=== PATIENT | female | born 1995 | race Caucasian/White ===

== ENCOUNTER 2016-02-21 11:29 | Emergency (ER) | payer OTHER ==
[~2016-02-21] VITALS: Ht 172.7 cm; Wt 117.9 kg
[~2016-02-21 11:29] MED LIST: ATARAX25 MG PO; AVPAK AZITHROM250 M1 PO; BACTRIM DS 8001 TA1 PO; BIRTH CONTROL IMPLAN; BIRTH CONTROL1 EAC1 PO; CEFUROXIME AXE250 MG PO; CLARITIN-D 12 H1 TAB PO; CLARITIN10 MG PO; CLINDAMYCIN HC300 MG PO; DONNATAL1 TAB PO; Elocon 0.1% Cre15 GM T; FLONASE ALLERG9.9 ML NAS; HYDROCODONE BIT1 T11 PO; INDERAL LA60 MG PO; KEFLEX500 MG PO; LOPERAMIDE HCL2 MG PO; MEDROL DOSEPAK4 MG PO; MOTRIN600 MG PO; MOTRIN800 MG PO; NAPROSYN500 MG PO; NKHM; NORCO 325 MG-51 TAB PO; PREDNICOT20 MG PO; PREDNISONE10 MG PO; PREDNISONE20 M1 PO; PRILOSEC40 MG PO; PYRIDIUM200 M1 PO; PYRIDIUM200 MG PO; ROBITUSSIN DM 105 ML PO; VITAMIN D50000 I3 PO; ZITHROMAX Z PA250 MG PO; ZOFRAN ODT4 MG SL; ZOVIRAX400 MG PO; ZYRTEC10 MG PO
[2016-02-21] MEDS ORDERED: NEXPLANON68 M2 SQ (11:38)
[2016-02-21] MEDS ORDERED: OMNICEF300 MG PO (12:48)
[2016-02-23] MEDS ORDERED: CLINDAMYCIN150 MG PO (14:27)
[2016-02-23] MEDS ORDERED: PREDNISONE10 MG PO (14:29)
== END 2016-02-21 12:57 | disposition home or self-care (01) ==
LOC: ED 11:29
DX: J02.0 Streptococcal pharyngitis (principal); H92.01 Otalgia, right ear; Z88.0 Allergy status to penicillin; Z88.1 Allergy status to other antibiotic agents; Z88.2 Allergy status to sulfonamides; Z79.899 Other long term (current) drug therapy

== ENCOUNTER → 2016-05-21 | Day surgery (SDC) | payer OTHER ==
[2016-05-02 10:10] VITALS: BP 122/68
[~2016-05-21] MED LIST changes: +CLINDAMYCIN150 MG PO; +NEXPLANON68 M2 SQ; +OMNICEF300 MG PO
--- NOTE | ~2016-05-21 | O ---
[place], [place] OPERATIVE NOTE NAME: SUN PERKINS UNIT #: [id number] ROOM: DOCTOR: WILI MENDEZ MD BIRTHDATE: [birth year] DOS: 05/21/2016 PREOPERATIVE DIAGNOSIS: Retained Nexplanon unable to be removed in the office, left upper inner arm. POSTOPERATIVE DIAGNOSIS: Retained Nexplanon unable to be removed in the office, left upper inner arm. PROCEDURE: Removal of Nexplanon from left upper inner arm. SURGEON: Wili Mendez M.D. ANESTHESIA: MAC with 1% lidocaine local anesthetic 3 mL. ESTIMATED BLOOD LOSS: Minimal. COMPLICATIONS: None. STATUS: The patient status to recovery stable. OPERATIVE SUMMARY: The patient was taken to the operating room, left in supine position, administered MAC anesthesia, prepped and draped in routine manner. The IUD was identified, 1% local anesthetic, 3 mL were injected underneath the tip of the Nexplanon. A small stab incision was made and a Nexplanon was removed without complication. We then achieved hemostasis and then placed one interrupted 3-0 Monocryl suture subcuticularly and then placed dressing. The patient was cleaned off gently awakened and then transferred to recovery in satisfactory condition. WILI MENDEZ MD CM:OPRECORD:OPERATIVE NOTE [id number] WILI MENDEZ MD 05/21/161946 interface
--- NOTE | ~2016-05-21 | WRIGHTHP ---
[place], [place] PATIENT HISTORY AND PHYSICAL EXAM NAME: [facility]INS [id number] UNIT #: [id number] ROOM: DOCTOR: WILI DIMAS MD BIRTHDATE: [birth year] DOS: 05/07/2016 HISTORY OF PRESENT ILLNESS: A 20-year-old white female 0, whose last menstrual period is unknown as she is on Nexplanon and having amenorrhea who presented to the office on 04/24/2016 stating that the Nexplanon that she had placed by another provider on 02/17/2014 was now causing her arm to go numb and she was having significant pain at the insertion site. She also stated that she felt that the device had migrated somewhat upward. She is, as I said, having amenorrhea with this device, but did want this removed because of the symptoms and will initiate control pills thereafter. On the examination in the office, it was obvious that the patient was extremely anxious and strongly desired to be asleep for any type of surgical manipulation. We also were having trouble palpating the entire device and could in an actuality only palpate the superior aspect of the device itself; therefore, based on the patient's concerns, I reviewed with the patient and her mother the risks and benefits, indications, complications and alternatives of MAC anesthesia with local anesthetic in regard to removal of this device once she is stable and once she has her first post Nexplanon removal. We will then initiate oral contraceptives. The risks and benefits, indications, potential complications, and alternatives were thoroughly reviewed, understanding stated and consent signed. PAST MEDICAL HISTORY: Reveals the patient to be a nonsmoker and nondrinker. MEDICATIONS: She does take anti-inflammatories on a p.r.n. basis. ALLERGIES: She states allergy to PENICILLIN, which gives her a rash as well as allergy to BIAXIN, which gives her hives. We have no intention of using any antibiotics much less these 2 with the procedure. REVIEW OF SYSTEMS: Otherwise is stable in this patient. She states history of some allergies and asthma, but these are stable and she is taking no medications for these conditions at this time. FAMILY HISTORY: Reveals a history of hypertension, asthma, diabetes and even cancer of a questionable type throughout the family, but none of these issues at this time are pertinent to the procedure that is about to occur. PHYSICAL EXAMINATION: GENERAL: Reveals a pleasant white female. She is in no significant distress at this time other than what she complains about above. VITAL SIGNS: She is 5 feet, 8 inches, 262 pounds, BMI is essentially 40. Blood pressure 122/78. HEENT: Stable. NECK: Stable. LUNGS: Stable. Her lungs were clear in the office. CARDIAC: Stable. ABDOMEN: Normal. EXTREMITIES: Normal except for the discussion we have already had about the Nexplanon ivelisse in the left upper arm, and what was not and what was palpable was [place], [place] PATIENT HISTORY AND PHYSICAL EXAM NAME: SUN PERKINS UNIT #: [id number] ROOM: DOCTOR: WILI DIMAS MD BIRTHDATE: [birth year] well above where the insertion site was. NEUROLOGIC: Normal. PELVIC: Deferred. RECTAL: Not pertinent to her present situation. ASSESSMENT AND PLAN: At this time is symptomatic Nexplanon ivelisse including complaints of numbness in the arm and pain at the insertion site as well as what appears to be migration of this device at least 0.5 to 1 cm well above where it was inserted and only part of it is palpable in the office. There is also high anxiety associated with any effort at removal in the office as well. To that end, on 05/07/2016, under MAC anesthesia and 1% lidocaine local anesthesia, we will remove this Nexplanon ivelisse. WILI DIMAS MD CM:HISPHYS:PATIENT HISTORY AND PHYSICAL EXAMINATION [id number] WILI DIMAS MD 05/03/16 0727 interface
[2016-05-21 13:55] VITALS: BP 120/63
[2016-05-21 14:10] VITALS: BP 120/67
[2016-05-21 14:25] VITALS: BP 121/68
== END | disposition home or self-care (01) ==
LOC: CANPRESDC → SDC 05-02 10:15
DX: Z30.46 Encounter for surveillance of implantable subdermal contraceptive (principal); J45.909 Unspecified asthma, uncomplicated; F41.9 Anxiety disorder, unspecified; F32.9 Major depressive disorder, single episode, unspecified; Z82.49 Family history of ischemic heart disease and other diseases of the circulatory system; Z82.5 Family history of asthma and other chronic lower respiratory diseases; Z83.3 Family history of diabetes mellitus

== ENCOUNTER 2016-08-01 14:22 | Emergency (ER) | payer OTHER ==
[~2016-08-01] VITALS: Ht 172.7 cm; Wt 117.9 kg
[2016-08-01 15:14] LABS: BILIRUBIN NEGATIVE (NEGATIVE); BLOOD NEGATIVE (NEGATIVE); CLARITY CLEAR (CLEAR); COLOR YELLOW (YELLOW); GLUCOSE NEGATIVE (NEGATIVE); KETONE NEGATIVE (NEGATIVE); LEUKO ESTERASE NEGATIVE (NEGATIVE); NITRITE NEGATIVE (NEGATIVE); PH 5.5 (5.0-9.0); PROTEIN NEGATIVE (NEGATIVE); UROBILINOGEN 0.2 E.U./dl (0.2-1.0)
[2016-08-01 15:22] LABS: RBC 0-2 rbc/hpf (0-2); URINE REFLEX COMMENT NO (NO)
[2016-08-01] MEDS ORDERED: NAPROXEN500 MG PO (17:29)
[2016-08-01] MEDS ORDERED: ROBAXIN500 M1 PO (17:29)
== END 2016-08-01 17:31 | disposition home or self-care (01) ==
LOC: ED 14:22
PROVIDERS: Emergency Medicine
DX: M54.6 Pain in thoracic spine (principal); Z88.0 Allergy status to penicillin; Z88.1 Allergy status to other antibiotic agents; Z88.2 Allergy status to sulfonamides

== ENCOUNTER 2016-12-25 23:44 | Emergency (ER) | payer OTHER ==
[~2016-12-25] VITALS: Ht 172.7 cm; Wt 117.9 kg
[~2016-12-25 23:44] MED LIST changes: +NAPROXEN500 MG PO; +ROBAXIN500 M1 PO
[2016-12-26 00:26] LABS: BASO # 0.2 10*3/uL (0.0-0.1); BASO % 1.1 % (0.0-1.0); EOS # 0.3 10*3/uL (0.0-0.4); EOS % 2.2 % (1.0-4.0); HEMATOCRIT 41.7 % (37.0-47.0); LYMPH % 25.5 % (27.0-41.0); MEAN CELL VOLUME 85.1 fl (81.0-99.0); MEAN CORPUSCULAR HGB 28.6 pg (27.0-31.0); MEAN CORPUSCULAR HGB CONC 33.6 g/dl (33.0-37.0); MONO # 1.3 10*3/uL (0.1-1.0); NEUT # 9.8 10*3/uL (2.3-7.9); NEUT % 62.8 % (47.0-73.0); PLATELET COUNT AUTOMATED 371 10*3/uL (130-400); RED CELL DISTRI WIDTH 13.1 % (0-14.5); WHITE BLOOD COUNT 15.7 10*3/uL (4.8-10.8)
[2016-12-26 00:31] LABS: BILIRUBIN NEGATIVE (NEGATIVE); BLOOD 3+ (NEGATIVE); CLARITY SL CLOUDY (CLEAR); COLOR YELLOW (YELLOW); GLUCOSE NEGATIVE (NEGATIVE); KETONE NEGATIVE (NEGATIVE); LEUKO ESTERASE 1+ (NEGATIVE); NITRITE POSITIVE (NEGATIVE); UROBILINOGEN 0.2 E.U./dl (0.2-1.0)
[2016-12-26 00:43] LABS: BACTERIA TRACE; RBC TNTC rbc/hpf (0-2); WBC 21-30 wbc/hpf (0-5)
[2016-12-26 00:43] LABS: ALBUMIN 3.6 gm/dl (3.1-4.5); ALKALINE PHOSPHATASE 114 U/L (45-117); BUN 12 mg/dl (7-24); CHLORIDE 106 mmol/L (98-107); CREATININE 0.92 mg/dL (0.55-1.02); LIPASE 160 U/L (73-393); POTASSIUM 4.1 mmol/L (3.5-5.1); SGOT/AST 21 IU/L (3-35); SGPT/ALT 32 U/L (12-78); SODIUM 140 mmol/L (136-145); TOTAL PROTEIN 7.9 gm/dL (6.4-8.2)
[2016-12-26] MEDS ORDERED: CIPRO250 MG PO (02:28)
[2016-12-26] MEDS ORDERED: Percocet 325 MG1 TAB PO (02:28)
[2016-12-26] MEDS ORDERED: DIFLUCAN150 MG PO (02:28)
[2016-12-26] MEDS ORDERED: ZOFRAN ODT4 MG SL (02:39)
== END 2016-12-26 03:12 | disposition home or self-care (01) ==
LOC: ED 23:44
PROVIDERS: Physician Assistant
DX: N39.0 Urinary tract infection, site not specified (principal); R31.9 Hematuria, unspecified; Z88.0 Allergy status to penicillin; Z88.2 Allergy status to sulfonamides; Z88.1 Allergy status to other antibiotic agents

== ENCOUNTER 2017-03-29 17:56 | Emergency (ER) | payer OTHER ==
[~2017-03-29] VITALS: Ht 172.7 cm; Wt 108.9 kg
[~2017-03-29 17:56] MED LIST changes: +CIPRO250 MG PO; +DIFLUCAN150 MG PO; +Percocet 325 MG1 TAB PO
[2017-03-29] MEDS ORDERED: OFLOXACIN OTIC5 ML OT (18:26)
== END 2017-03-29 18:37 | disposition home or self-care (01) ==
LOC: ED 17:56
DX: H60.91 Unspecified otitis externa, right ear (principal); Z88.2 Allergy status to sulfonamides; Z88.0 Allergy status to penicillin; Z88.1 Allergy status to other antibiotic agents; Z88.8 Allergy status to other drugs, medicaments and biological substances

== ENCOUNTER 2019-07-04 23:45 | Emergency (ER) | payer OTHER ==
[~2019-07-04] VITALS: Ht 172.7 cm; Wt 114.8 kg
[~2019-07-04 23:45] MED LIST changes: +OFLOXACIN OTIC5 ML OT
[2019-07-05] MEDS ORDERED: PREDNISONE20 M1 PO (00:10)
[2019-07-05] MEDS ORDERED: VIBRAMYCIN100 MG PO (00:10)
[2019-07-05] MEDS ORDERED: KENALOG 0.1%80 GM T (00:11)
== END 2019-07-05 01:11 | disposition home or self-care (01) ==
LOC: ED 23:45
DX: L25.9 Unspecified contact dermatitis, unspecified cause (principal); J45.909 Unspecified asthma, uncomplicated; Z88.0 Allergy status to penicillin; Z88.2 Allergy status to sulfonamides; Z88.1 Allergy status to other antibiotic agents

== ENCOUNTER → 2020-05-16 | Outpatient (CLI) | payer OTHER ==
[~2020-05-16] MED LIST changes: +KENALOG 0.1%80 GM T; +VIBRAMYCIN100 MG PO
== END | disposition home or self-care (01) ==
LOC: LAB 10:52
PROVIDERS: ATTEND Internal Medicine
DX: J02.9 Acute pharyngitis, unspecified (principal)

== ENCOUNTER 2021-08-07 16:51 | Emergency (ER) | payer OTHER ==
[2021-08-07 17:36] LABS: BASO # 0.1 10*3/uL (0.0-0.1); BASO % 1.2 % (0.0-1.0); EOS # 0.3 10*3/uL (0.0-0.4); EOS % 3.1 % (1.0-4.0); HEMATOCRIT 40.2 % (37.0-47.0); LYMPH # 2.9 10*3/uL (1.3-4.4); MEAN CELL VOLUME 84.5 fl (81.0-99.0); MEAN CORPUSCULAR HGB 27.9 pg (27.0-31.0); MEAN CORPUSCULAR HGB CONC 33.1 g/dl (33.0-37.0); MONO # 0.9 10*3/uL (0.1-1.0); MONO % 8.2 % (3.0-9.0); NEUT # 6.5 10*3/uL (2.3-7.9); PLATELET COUNT AUTOMATED 380 10*3/uL (130-400); RED BLOOD COUNT 4.76 10*6/uL (4.10-5.10); RED CELL DISTRI WIDTH 13.1 % (0-14.5); WHITE BLOOD COUNT 10.8 10*3/uL (4.8-10.8)
[2021-08-07 17:50] LABS: BILIRUBIN Negative (Negative); BLOOD Negative (Negative); CLARITY Cloudy (Clear); COLOR Yellow (Yellow); GLUCOSE Negative (Negative); KETONE Negative (Negative); LEUKO ESTERASE Negative (Negative); NITRITE Negative (Negative); PH 5.5 (4.5-8.0); SPECIFIC GRAVITY 1.015 (1.001-1.030); UROBILINOGEN 0.2 E.U./dl (0.0-1.0)
[2021-08-07 17:51] LABS: ALKALINE PHOSPHATASE 101 U/L (45-117); BUN 9 mg/dl (7-24); CHLORIDE 105 mmol/L (98-107); CREATININE 0.76 mg/dL (0.55-1.02); LIPASE 110 U/L (73-393); POTASSIUM 3.7 mmol/L (3.5-5.1); SGOT/AST 22 IU/L (3-35); SGPT/ALT 36 U/L (12-78); SODIUM 139 mmol/L (136-145); TOTAL PROTEIN 7.7 gm/dL (6.4-8.2)
[2021-08-07 17:56] LABS: BACTERIA 2+
[2021-08-07 17:57] LABS: EPITHELIAL CELLS 16-20
== END 2021-08-07 20:08 | disposition home or self-care (01) ==
LOC: ED 16:51
PROVIDERS: Emergency Medicine
DX: N83.201 Unspecified ovarian cyst, right side (principal)

== ENCOUNTER → 2022-04-27 | Outpatient (CLI) | payer OTHER ==
[2022-04-27 14:54] LABS: BILIRUBIN Negative (Negative); BLOOD Negative (Negative); CLARITY Clear (Clear); COLOR Yellow (Yellow); GLUCOSE Negative (Negative); KETONE Negative (Negative); LEUKO ESTERASE 2+ (Negative); NITRITE Negative (Negative); UROBILINOGEN 0.2 E.U./dl (0.0-1.0)
[2022-04-27 15:04] LABS: BACTERIA TRACE
== END | disposition home or self-care (01) ==
LOC: LAB 14:11
PROVIDERS: ATTEND Internal Medicine
DX: R30.0 Dysuria (principal)

== ENCOUNTER → 2024-12-31 | Outpatient (CLI) | payer OTHER | END | disposition home or self-care (01) | LOC: LAB 09:55 | PROVIDERS: ATTEND Nurse Practitioner Women's Health | DX: Z72.51 High risk heterosexual behavior (principal) ==

== ENCOUNTER → 2025-01-23 | Outpatient (CLI) | payer OTHER | END | disposition home or self-care (01) | LOC: US 01-14 07:30 | PROVIDERS: ATTEND Nurse Practitioner Women's Health | DX: N84.1 Polyp of cervix uteri (principal); N92.6 Irregular menstruation, unspecified ==